=== PATIENT | female | born 1990 | race African-American/Black ===

== ENCOUNTER 2020-10-12 12:05 | Inpatient (IN) | payer SELFPAY ==
[2020-10-12] VITALS (19 sets, daily range): BP systolic 113–139; BP diastolic 65–85; PULSE 101–131; RESP 12–31; TEMP 36.8–36.9; O2SAT 98–100; BMI 20.6
--- NOTE | 2020-10-12 12:31 | NURSING ---
pt arrived via EMS into room 204 at 1200, insulin gtt running at 6 units/hr verified with EMS staff and this RN, glucose checked at 1215 resulted 410, insulin gtt remains at 6 units/hr.
--- NOTE | 2020-10-12 12:48 | HP.PCM.HOS_ITS ---
HPI - General General Date of Admission: 10/12/20 Date of Service: 10/12/20 Chief Complaint: Generalized weakness HPI Narrative RHONDA ROBERTS, is a 30 F with past medical history significant for diabetes mellitus type 1 transferred from [facility] on account of DKA. Per patient symptoms started 2 days prior to her admission. She did have a couple of drinks which was later followed by. Of generalized weakness. Patient also did complain of decreased appetite as well as some nausea. Patient felt she was dehydrated and try to keep up with her fluid intake however her condition worsened. She was finally seen at an outside hospital DKA was diagnosed and patient transferred to the ED. On further questioning patient admitted to previous admissions for DKA in [place] where she normally resides. [facility] Medical History (Updated 10/12/20 @ 12:[address] Joel Celis MD) Diabetes DKA, type 1 Home Medications insulin aspart U-100 [Novolog Flexpen U-100 Insulin] 26 unit SUBCUT BID 10/12/20 [History Last Taken Unknown] insulin glargine [Lantus Solostar U-100 Insulin] 40 unit SUBCUT QHS 10/12/20 [History Last Taken Unknown] Allergy/AdvReac Type Severity Reaction Status Date / Time sulfamethoxazole Allergy Rash Verified 10/12/20 12:48 [From Bactrim] trimethoprim [From Bactrim] Allergy Rash Verified 10/12/20 12:48 Family History Mother Borderline diabetes Grandmother Borderline diabetes Sister Borderline diabetes Aunt Breast cancer Grandmother Throat cancer Social History Smoking Status: Never smoker ROS ROS Narrative GENERAL: anorexia HEENT: denies headache, sinus congestion, RESPIRATORY: denies cough, sputum production, CARDIAC: denies chest pain, palpitations, orthopnea, GASTROINTESTINAL: denies abdominal pain, GENITOURINARY: denies dysuria, urgency, EXTREMITY: denies swelling MUSCULOSKELETAL: denies current joint pain NEUROLOGIC: denies focal numbness, HEMATOLOGIC: denies easy bruising INTEGUMENT: denies rashes PSYCHIATRIC: denies suicidal or homicidal ideation Vital Signs Vital Signs Vital Signs: 10/12/20 12:15 10/12/20 12:30 10/12/20 12:44 Temperature 98.3 F Temperature Source Temporal Pulse Rate 130 H 120 H 120 H Respiratory Rate 21 H 21 H Respiratory Effort Normal Non-Labored Respiratory Depth Normal Respiratory Pattern Tachypnea Blood Pressure 131/79 H 136/85 H Blood Pressure Mean 96 102 Blood Pressure Source Monitor Monitor Blood Pressure Position Semi-Fowlers Semi-Fowlers Blood Pressure Location Left Arm Left Arm Pulse Ox 100 100 Oxygen Delivery Method Room Air Room Air 10/12/20 12:45 Temperature Temperature Source Pulse Rate 119 H Respiratory Rate 20 H Respiratory Effort Respiratory Depth Respiratory Pattern Blood Pressure 124/85 H Blood Pressure Mean 98 Blood Pressure Source Monitor Blood Pressure Position Semi-Fowlers Blood Pressure Location Left Arm Pulse Ox 100 Oxygen Delivery Method Room Air Weight Weight: 63.367 kg Body Mass Index (BMI) 20.6 Physical Exam Narrative GENERAL: cooperative appears ill looking HEENT: Atraumatic; EYES; Anicteric, Normal Conjunctiva NECK; supple, normal thyroid, RESPIRATORY: Diminished to auscultation CARDIOVASCULAR: Regular S1 S2, tachycardic GI: soft, normoactive bowel sounds, : No Renal angle tenderness; EXTREMITIES: No edema, no clubbing, MUSCULOSKELETAL: no muscle waisting NEURO: Awake; no lateralizing signs. SKIN: No Rash PSYCH; Flat affect Assessment & Plan Assessment/Plan (1) DKA, type 1: QUALIFIERS: Diabetes mellitus complication detail: without coma Qualified Code(s): E10.10 - Type 1 diabetes mellitus with ketoacidosis without coma (2) Diabetes: QUALIFIERS: Diabetes mellitus type: type 1 Diabetes mellitus complication status: with hyperglycemia Qualified Code(s): E10.65 - Type 1 diabetes mellitus with hyperglycemia PLAN: Patient is a 30-year-old lady with history of diabetes mellitus type 1 presented with progressive generalized weakness diagnosed with DKA 1. Diabetic ketoacidosis ?Patient has been admitted to the intensive care unit currently being managed with aggressive IV fluid resuscitation, systemic use of insulin and correction of electrolyte abnormalities. Patient progress being monitored by every 4 glucose monitoring. As part of finding of the prostate symptomatology requested for urinalysis chest x-ray, SARS-CoV-2 assay as well as serial cardiac enzymes. 2. Metabolic acidosis ?Secondary to DKA management as discussed above 3. Severe dehydration ?From patient's DKA patient being managed with IV fluids with subsequent monitoring of electrolyte 4. Diabetes mellitus type 1 ?Patient presented with complications including DKA management as discussed above. Patient home regimen currently on hold. As part of her management requested for dietitian consultation 5. DVT prophylaxis ?Lovenox Charges/Coding Visit Charges Inpatient E&M: 12310 Init Hosp L3
[2020-10-12] MEDS: 0.9% Normal Saline 1,000 ML 999 ML IV (13:09)
[2020-10-12] MEDS: 0.9% Saline Lock 10 ML Syringe IV (13:34)
[2020-10-12] MEDS: Ondansetron 4 MG/2 ML Vial IV ×2 (13:34→22:42)
[2020-10-12 13:35] LABS: Base Excess -20 mmol/L (-2 to +2); Bicarbonate 7.2 mmol/L (22-26); Blood Gas Specimen Type ART; FI02 21; PO2 140 mmHG (75-100); SITE L Brach; SO2 99 % (95-99); Total Carbon Dioxide 8 mmol/L; pCO2 16.4 mmHg (35-45); pH 7.25 (7.35-7.45)
[2020-10-12 13:55] LABS: Bedside Glucose 330 mg/dL (70-110)
[2020-10-12] MEDS: Enoxaparin 40 MG/0.4 ML Syringe SC (13:55)
--- NOTE | 2020-10-12 14:20 | NURSING ---
this RN attempted and lab staff attempted to get lab draw, unsuccessful. Will get stat when PICC placed.
[2020-10-12 14:21] LABS: Bedside Glucose 276 mg/dL (70-110)
[2020-10-12] MEDS: 0.9% Normal Saline 1,000 ML 500 ML IV (15:09)
[2020-10-12 15:16] LABS: Bedside Glucose 250 mg/dL (70-110)
[2020-10-12 16:25] LABS: Absolute Lymphocyte Count 1.24 X10^3/uL (0.83-4.51); Absolute Neutrophil Count 11.4 X10^3/uL (2.0-7.7); Basophil# 0.04 X10^3/uL; Basophil% 0.3 % (0-1); Hematocrit 34.7 % (37-47); Hemoglobin 10.7 g/dL (12.0-15.0); Lymphocyte # 1.24 X10^3/ul (0.83-4.51); Lymphocyte % 9.1 % (19-41); Mean Corp Hgb Conc 30.8 g/dL (32-36); Mean Corpuscular Hgb 28.8 pg (27.0-32.0); Mean Corpuscular Volume 93.3 fL (81-99); Mean Platelet Vol. 11.4 fl (6.2-12.0); Monocyte# 0.77 X10^3/uL; Monocyte% 5.6 % (0-10); NRBC Flagged by Analyzer 0 % (0-5); Neutrophil # 11.43 X10^3/uL (2.7-7.7); Neutrophil % 83.7 % (47-70); Platelet Count 327 K/mm3 (150-450); RBC Distribution Width CV 15.2 % (11.6-14.6); RBC Distribution Width SD 52.7 fl (35.1-43.9); Red Blood Count 3.72 M/mm3 (4.2-5.4); White Blood Count 13.7 K/mm3 (4.4-11.0)
[2020-10-12 16:35] LABS: Bedside Glucose 224 mg/dL (70-110)
[2020-10-12 16:45] LABS: Hemoglobin A1c 11.1 % (3.8-5.6); Troponin-I HS 4.1 pg/mL (3.0-53.7)
[2020-10-12 16:47] LABS: Lactic Acid 0.6 mmol/L (0.4-1.9)
[2020-10-12 17:01] LABS: ALB/GLOB Ratio 0.9 RATIO (0.9-2.4); AST(SGOT) 7 U/L (15-37); Alanine Aminotransfer ALT/SGPT 15 U/L (13-56); Albumin, Serum 3.3 g/dL (3.2-5.0); Alkaline Phosphatase 79 U/L (45-117); Anion Gap 17 (5-15); BUN 11 mg/dL (7-18); BUN/Creat Ratio 11.8 RATIO (10-20); Calcium,Total 8.2 mg/dL (8.5-10.1); Chloride 120 mmol/L (98-107); Creatinine, Serum 0.93 mg/dL (0.55-1.02); EST Glomerular Filtration Rate 75 mL/min (>60); Est Glom Filt Rate - Afr Amer 91 mL/min (>60); Estimated Creatinine Clearance 88.48 ml/min; Globulin 3.7 g/dL (2.2-4.2); Glucose 232 mg/dL (74-106); Magnesium 1.8 mg/dL (1.6-2.6); Potassium 4.3 mmol/L (3.5-5.1); Sodium Level 143 mmol/L (136-145)
[2020-10-12 17:26] LABS: Bedside Glucose 190 mg/dL (70-110)
[2020-10-12] MEDS: Potassium Chloride 40 MEQ in Dext 5%-0.45% NS 1,000 ML 250 MEQ IV ×2 (17:38→22:52)
[2020-10-12 18:21] LABS: Bedside Glucose 201 mg/dL (70-110)
[2020-10-12] MEDS: proMETHazine 25 MG/ML Syringe IM (18:22)
[2020-10-12 19:00] LABS: Troponin-I HS 4.1 pg/mL (3.0-53.7)
[2020-10-12 19:36] LABS: Bedside Glucose 235 mg/dL (70-110)
[2020-10-12 20:45] LABS: Bedside Glucose 244 mg/dL (70-110)
[2020-10-12 21:13] LABS: Anion Gap 9 (5-15); BUN 8 mg/dL (7-18); BUN/Creat Ratio 8.2 RATIO (10-20); Calcium,Total 8.1 mg/dL (8.5-10.1); Chloride 120 mmol/L (98-107); Creatinine, Serum 0.98 mg/dL (0.55-1.02); EST Glomerular Filtration Rate 71 mL/min (>60); Est Glom Filt Rate - Afr Amer 86 mL/min (>60); Estimated Creatinine Clearance 83.97 ml/min; Glucose 231 mg/dL (74-106); Potassium 4.1 mmol/L (3.5-5.1); Sodium Level 142 mmol/L (136-145); Troponin-I HS 3.9 pg/mL (3.0-53.7)
[2020-10-12 21:26] LABS: Bedside Glucose 236 mg/dL (70-110)
[2020-10-12 22:40] LABS: Bedside Glucose 161 mg/dL (70-110)
[2020-10-12] MEDS: Famotidine 20 MG Tablet PO (22:42)
[2020-10-12 23:41] LABS: Bedside Glucose 163 mg/dL (70-110)
[2020-10-13] VITALS (15 sets, daily range): BP systolic 111–148; BP diastolic 66–92; PULSE 90–123; RESP 16–20; TEMP 36.6–37.3; O2SAT 96–100
[2020-10-13 00:10] LABS: Anion Gap 8 (5-15); BUN 8 mg/dL (7-18); BUN/Creat Ratio 8.7 RATIO (10-20); Calcium,Total 8.3 mg/dL (8.5-10.1); Chloride 121 mmol/L (98-107); Creatinine, Serum 0.92 mg/dL (0.55-1.02); EST Glomerular Filtration Rate 77 mL/min (>60); Est Glom Filt Rate - Afr Amer 93 mL/min (>60); Estimated Creatinine Clearance 89.44 ml/min; Glucose 151 mg/dL (74-106); Sodium Level 144 mmol/L (136-145)
--- NOTE | 2020-10-13 00:16 | PCM.HOSP.N ---
Hospitalist Note AG closed x 2, will transition to SC insulin regimen off drip with ~1 hour transition, transition to ISS w/ accu checks.
[2020-10-13] MEDS: proMETHazine 25 MG/ML Syringe IM ×2 (01:40→09:45)
[2020-10-13 05:20] LABS: Absolute Lymphocyte Count 0.86 X10^3/uL (0.83-4.51); Absolute Neutrophil Count 6.4 X10^3/uL (2.0-7.7); Basophil# 0.02 X10^3/uL; Basophil% 0.3 % (0-1); Hematocrit 32.9 % (37-47); Hemoglobin 10.6 g/dL (12.0-15.0); Lymphocyte # 0.86 X10^3/ul (0.83-4.51); Lymphocyte % 10.9 % (19-41); Mean Corp Hgb Conc 32.2 g/dL (32-36); Mean Corpuscular Hgb 29.4 pg (27.0-32.0); Mean Corpuscular Volume 91.1 fL (81-99); Mean Platelet Vol. 11.5 fl (6.2-12.0); Monocyte# 0.52 X10^3/uL; Monocyte% 6.6 % (0-10); NRBC Flagged by Analyzer 0 % (0-5); Neutrophil # 6.41 X10^3/uL (2.7-7.7); Neutrophil % 81.3 % (47-70); Platelet Count 285 K/mm3 (150-450); RBC Distribution Width CV 15.5 % (11.6-14.6); RBC Distribution Width SD 51.5 fl (35.1-43.9); Red Blood Count 3.61 M/mm3 (4.2-5.4); White Blood Count 7.9 K/mm3 (4.4-11.0)
[2020-10-13 05:58] LABS: ALB/GLOB Ratio 0.9 RATIO (0.9-2.4); AST(SGOT) 12 U/L (15-37); Alanine Aminotransfer ALT/SGPT 14 U/L (13-56); Albumin, Serum 3.2 g/dL (3.2-5.0); Alkaline Phosphatase 78 U/L (45-117); Anion Gap 9 (5-15); BUN 6 mg/dL (7-18); BUN/Creat Ratio 6.5 RATIO (10-20); Calcium,Total 8.6 mg/dL (8.5-10.1); Chloride 117 mmol/L (98-107); Creatinine, Serum 0.93 mg/dL (0.55-1.02); EST Glomerular Filtration Rate 75 mL/min (>60); Est Glom Filt Rate - Afr Amer 91 mL/min (>60); Estimated Creatinine Clearance 92.02 ml/min; Globulin 3.7 g/dL (2.2-4.2); Glucose 267 mg/dL (74-106); Potassium 4.2 mmol/L (3.5-5.1); Protein, Total 6.9 g/dL (6.4-8.2); Sodium Level 140 mmol/L (136-145)
--- NOTE | 2020-10-13 07:19 | PCM.PN.HOSP ---
Subjective Subjective Patient's anion gap did close however complains of significant nausea and vomiting and inability to hold anything down. Patient was started on Protonix for suspected gastritis Objective Data Objective Data Vital Signs: Vital Signs Temp Pulse Resp BP Pulse Ox 98.3 F 101 H 18 111/66 96 10/13/20 07:00 10/13/20 07:00 10/13/20 07:00 10/13/20 07:00 10/13/20 07:00 Oxygen Delivery Method Room Air Weight: 65.9 kg Body Mass Index (BMI) 20.6 Intake & Output: Intake and Output for Last 24 Hours 10/11/20 10/12/20 10/13/20 23:59 23:59 23:59 Intake Total 3053.41 / 3053.41 866.13 / 866.13 Output Total 1800 / 1800 900 / 900 Balance 1253.41 / 1253.41 -33.87 / -33.87 Lab / Micro Data Result Diagrams: 10/13/20 05:00 10/13/20 05:00 Labs: Laboratory Results - last 24 hr 10/12/20 13:14: COVID-19 ([facility]) Not Detected 10/12/20 13:27: POC Glucose 330 H 10/12/20 14:14: POC Glucose 276 H 10/12/20 15:11: POC Glucose 250 H 10/12/20 16:10: Hemoglobin A1c 11.1 H 10/12/20 16:10: Sodium 143, Potassium 4.3, Chloride 120 H, Carbon Dioxide 6.0 L*, Anion Gap 17 H, BUN 11, Creatinine 0.93, Estim Creat Clear Calc 88.48, Est GFR (MDRD) Af Amer 91, Est GFR (MDRD) Non-Af 75, BUN/Creatinine Ratio 11.8, Glucose 232 H, Calcium 8.2 L, Magnesium 1.8, Total Bilirubin 0.30, AST 7 L, ALT 15, Alkaline Phosphatase 79, Total Protein 7.0, Albumin 3.3, Globulin 3.7, Albumin/Globulin Ratio 0.9 10/12/20 16:10: Lactic Acid 0.6 10/12/20 16:10: WBC 13.7 H, RBC 3.72 L, Hgb 10.7 L, Hct 34.7 L, MCV 93.3, MCH 28.8, MCHC 30.8 L, RDW Std Deviation 52.7 H, RDW Coeff of Rosalina 15.2 H, Plt Count 327, MPV 11.4, Immature Gran % (Auto) 1.300 H, Neut % (Auto) 83.7 H, Lymph % (Auto) 9.1 L, Callaway % (Auto) 5.6, Eos % (Auto) 0.0, Baso % (Auto) 0.3, Absolute Neuts (auto) 11.4 H, Absolute Lymphs (auto) 1.24, Nucleated RBC % 0 10/12/20 16:10: Acetone Level SMALL H 10/12/20 16:10: Troponin I High Sens 4.1 10/12/20 16:32: POC Glucose 224 H 10/12/20 17:22: POC Glucose 190 H 10/12/20 18:16: POC Glucose 201 H 10/12/20 18:30: Troponin I High Sens 4.1 10/12/20 19:28: POC Glucose 235 H 10/12/20 20:26: POC Glucose 244 H 10/12/20 20:30: Sodium 142, Potassium 4.1, Chloride 120 H, Carbon Dioxide 13.0 L, Anion Gap 9, BUN 8, Creatinine 0.98, Estim Creat Clear Calc 83.97, Est GFR (MDRD) Af Amer 86, Est GFR (MDRD) Non-Af 71, BUN/Creatinine Ratio 8.2 L, Glucose 231 H, Calcium 8.1 L, Troponin I High Sens 3.9 10/12/20 21:18: POC Glucose 236 H 10/12/20 22:30: POC Glucose 161 H 10/12/20 23:25: POC Glucose 163 H 10/12/20 23:30: Sodium 144, Potassium 4.0, Chloride 121 H, Carbon Dioxide 15.0 L, Anion Gap 8, BUN 8, Creatinine 0.92, Estim Creat Clear Calc 89.44, Est GFR (MDRD) Af Amer 93, Est GFR (MDRD) Non-Af 77, BUN/Creatinine Ratio 8.7 L, Glucose 151 H, Calcium 8.3 L 10/13/20 05:00: WBC 7.9, RBC 3.61 L, Hgb 10.6 L, Hct 32.9 L, MCV 91.1, MCH 29.4, MCHC 32.2, RDW Std Deviation 51.5 H, RDW Coeff of Rosalina 15.5 H, Plt Count 285, MPV 11.5, Immature Gran % (Auto) 0.900, Neut % (Auto) 81.3 H, Lymph % (Auto) 10.9 L, Callaway % (Auto) 6.6, Eos % (Auto) 0.0, Baso % (Auto) 0.3, Absolute Neuts (auto) 6.4, Absolute Lymphs (auto) 0.86, Nucleated RBC % 0 10/13/20 05:00: Sodium 140, Potassium 4.2, Chloride 117 H, Carbon Dioxide 14.0 L, Anion Gap 9, BUN 6 L, Creatinine 0.93, Estim Creat Clear Calc 92.02, Est GFR (MDRD) Af Amer 91, Est GFR (MDRD) Non-Af 75, BUN/Creatinine Ratio 6.5 L, Glucose 267 H, Calcium 8.6, Total Bilirubin 0.30, AST 12 L, ALT 14, Alkaline Phosphatase 78, Total Protein 6.9, Albumin 3.2, Globulin 3.7, Albumin/Globulin Ratio 0.9 ABG Data ABG results: ABG 10/12/20 13:29 Specimen Type ART Sample Site L Brach pH 7.25 L Bicarbonate Actual 7.2 L Total CO2 8 Base Excess -20 L O2 Saturation 99 O2 % 21 ABG pCO2 16.4 L* ABG pO2 140 H Crit Call To/Read Back Yes Blood Gas Notified Whom dr. moya Physical Exam Narrative GENERAL: cooperative appears ill looking HEENT: Atraumatic; EYES; Anicteric, Normal Conjunctiva NECK; supple, normal thyroid, RESPIRATORY: Diminished to auscultation CARDIOVASCULAR: Regular S1 S2, tachycardic GI: soft, normoactive bowel sounds, : No Renal angle tenderness; EXTREMITIES: No edema, no clubbing, MUSCULOSKELETAL: no muscle waisting NEURO: Awake; no lateralizing signs. SKIN: No Rash PSYCH; Flat affect Assessment & Plan Assessment/Plan (1) DKA, type 1: QUALIFIERS: Diabetes mellitus complication detail: without coma Qualified Code(s): E10.10 - Type 1 diabetes mellitus with ketoacidosis without coma (2) Diabetes: QUALIFIERS: Diabetes mellitus complication status: with hyperglycemia Diabetes mellitus type: type 1 Qualified Code(s): E10.65 - Type 1 diabetes mellitus with hyperglycemia PLAN: Patient is a 30-year-old lady with history of diabetes mellitus type 1 presented with progressive generalized weakness diagnosed with DKA 1. Diabetic ketoacidosis ?Patient has been admitted to the intensive care unit currently being managed with aggressive IV fluid resuscitation, systemic use of insulin and correction of electrolyte abnormalities. Patient progress being monitored by every 4 glucose monitoring. As part of finding of the prostate symptomatology requested for urinalysis chest x-ray, SARS-CoV-2 assay as well as serial cardiac enzymes. -10/13/2020. Patient anion gap did close started on long-acting insulin and scheduled Premeal and correction factor sliding scale 2. Metabolic acidosis ?Secondary to DKA management as discussed above 3. Severe dehydration ?From patient's DKA patient being managed with IV fluids with subsequent monitoring of electrolyte 4. Diabetes mellitus type 1 ?Patient presented with complications including DKA management as discussed above. Patient home regimen currently on hold. As part of her management requested for dietitian consultation 5. DVT prophylaxis ?Lovenox 6. Suspected gastritis ?Patient treated symptomatically with antinausea medication. Also started on Protonix. Charges/Coding Visit Charges Inpatient E&M: 27281 Subs Hosp L3
[2020-10-13] MEDS: Ondansetron 4 MG/2 ML Vial IV ×2 (07:57→19:02)
[2020-10-13 08:00] LABS: Bedside Glucose 235 mg/dL (70-110)
[2020-10-13] MEDS: Insulin Lispro 100 UNIT/ML INSULN.PEN 26 UNIT SC ×2 (08:05→16:49)
[2020-10-13] MEDS: Enoxaparin 40 MG/0.4 ML Syringe SC (09:42)
[2020-10-13] MEDS: Pantoprazole Sodium 40 MG Tablet PO ×2 (09:43→21:30)
[2020-10-13 11:20] LABS: Bedside Glucose 85 mg/dL (70-110)
[2020-10-13] MEDS: Insulin Lispro 100 UNIT/ML INSULN.PEN SC (16:48)
[2020-10-13 18:11] LABS: Bedside Glucose 302 mg/dL (70-110)
[2020-10-13 21:41] LABS: Bedside Glucose 103 mg/dL (70-110)
[2020-10-13] MEDS: proMETHazine 25 MG Tablet 12.5 MG PO (22:16)
[2020-10-14 06:08] VITALS: BP 121/80; PULSE 94; RESP 16; TEMP 36.8; O2SAT 100
[2020-10-14 07:49] VITALS: O2SAT 99
[2020-10-14 08:53] VITALS: BP 136/89; PULSE 91; RESP 18; TEMP 36.8; O2SAT 100
[2020-10-14] MEDS: 0.9% Saline Lock 10 ML Syringe IV (09:01)
[2020-10-14] MEDS: Ondansetron 4 MG/2 ML Vial IV (09:01)
[2020-10-14] MEDS: Insulin Lispro 100 UNIT/ML INSULN.PEN SC ×2 (09:03→12:18)
[2020-10-14] MEDS: Enoxaparin 40 MG/0.4 ML Syringe SC (09:04)
[2020-10-14] MEDS: Insulin Lispro 100 UNIT/ML INSULN.PEN 26 UNIT SC (09:04)
[2020-10-14] MEDS: Pantoprazole Sodium 40 MG Tablet PO (09:05)
[2020-10-14 09:20] LABS: Bedside Glucose 403 mg/dL (70-110)
--- NOTE | 2020-10-14 10:20 | CASEMGMT ---
CESAR MAYA Assessment: Face to Face with pt for initial transition planning/care coordination assessment. CESAR MAYA introduced self and role at [facility], pt voices understanding and consents to assessment. Pt lying in bed in no distress. Pt is A/O x4 and answers all questions appropriately at this time. Care providers, pharmacy, and demographics verified/updated. Admitting Dx: DKA PCP: Pt states she does not have a PCP currently. Specialists:Pt denies having any specialists. Preferred Pharmacy: [facility] Retail Insurance: Self pay Prescription Benefit: No LW/HPOA: Pt denies having a LW/DPOA. LNOK: Kassi Ferris sister Living Arrangements: Pt is from [facility]. She states she is relocating to the [place] area. Currently she is staying with her sister in a ground level apartment with no steps to enter. Pt is I in ADL's and denies concerns at home. Transportation: Pt does not drive. She states a friend or family member transports her to medical appts and she denies concerns with transportation. DME/HHC: Pt reports she has a glucometer, testing strips and lancets at her sister's home. She has to get a battery for it but is able to do so. She states she takes insulin and has the needles for it. She denies needing any supplies. Pt denies previously HHC. Pt states no concerns with going to sister's home at time of dc. Pt states she will be pursing her own residence but she has lost her social security card and ID. CESAR MAYA provided pt with list of local PCP's as well as information for Dr. Gallegos the purchasing intern. Notified Charles HANNA of pt self pay status. Pt states no further concerns/needs. CM to follow. Advised pt to ask CM if any further question/concerns/needs arise, voices understanding. Pt Goal: Home Plan: Home with sister support.
[2020-10-14 11:21] LABS: Bedside Glucose 279 mg/dL (70-110)
--- NOTE | 2020-10-14 11:44 | CASEMGMT ---
SOCIAL WORK Referral Source: CM Reason for Consult: Self-pay Met with patient in room. Introduced role and reason for referral. Patient reports had Medicaid in [place]. Encouraged patient to contact [place] Medicaid to have it switched to [place] since patient is relocating. Patient verbalized understanding. Provided patient with contact information for [place] Benefits-Medicaid. Plan: Home, resources provided Dayanna Dalton, LEAD COOK, CARDIOVASCULAR TECH
--- NOTE | 2020-10-14 12:06 | DCINST_ITS ---
Discharge Instructions Diet Discharge Diet: Carb Control Diet Activity Discharge Activity: Return to Normal Activity Dressing / Incision Call your doctor if you observe: Fever of 101 or Higher, Shortness of breath, Dizziness, Swelling in the ankles, Chest pain and Increased palpitations (irregular heartbeat) Follow Up Care Test Results: Test results from this visit will be discussed in further detail at your follow-up appointment, if applicable. Discharge Plan Admission Admit Date/Time: 10/12/20 12:05 Attending Provider: Dwight Bravo Primary Care Provider: Care Physician,No Primary Instructions Patient Instructions: Diabetes and Drinking Alcohol, Managing Type 1 Diabetes, Insulin How to Use and Where ..., Diabetes Learn Serve Portion Size, Diabetes: Meal Planning, Diabetes Carbs Fats Protein, Diabetic Ketoacidosis, A1C Additional Instructions / Restrictions: Follow-up with your social security specialist in [place] within the next 3 to 5days for further evaluation, monitoring, and insulin adjustment. Discharge Orders/Prescriptions Prescriptions: Continued insulin aspart U-100 [Novolog Flexpen U-100 Insulin] 100 unit/mL (3 mL) Insulin Pen 26 unit SUBCUT BID RF: 0 Lantus Solostar U-100 Insulin 100 unit/mL (3 mL) Insulin Pen 40 unit SUBCUT QHS RF: 0 Referrals / Follow Up: Care Physician,No Primary [Primary Care Provider] - Disposition Disposition (needs filled in before D/C Order can be placed): Home, Self Care
--- NOTE | 2020-10-14 12:08 | PCM.DC.SUM ---
Providers Date of Admission: 10/12/20 Primary Care Physician: No Primary Care Phys Reason For Visit: DKA Diagnosis Discharge Diagnosis (1) DKA, type 1: Status: Acute Code(s): E10.10 - Type 1 diabetes mellitus with ketoacidosis without coma Qualifiers: Diabetes mellitus complication detail: without coma Qualified Code(s): E10.10 - Type 1 diabetes mellitus with ketoacidosis without coma (2) Diabetes: Status: Acute Code(s): E11.9 - Type 2 diabetes mellitus without complications Qualifiers: Diabetes mellitus complication status: with hyperglycemia Diabetes mellitus type: type 1 Qualified Code(s): E10.65 - Type 1 diabetes mellitus with hyperglycemia Medications at Discharge Home Medications Lantus Solostar U-100 Insulin 40 unit SUBCUT QHS 10/12/20 insulin aspart U-100 [Novolog Flexpen U-100 Insulin] 26 unit SUBCUT BID 10/12/20 ondansetron 4 mg PO Q8H PRN #10 tab 10/14/20 Hospital Course Operations None Procedures None Summary of Care Provided Minutes Spent on Discharge: 50 Hospital Course: Per HPI: RHONDA ROBERTS, is a 30 F with past medical history significant for diabetes mellitus type 1 transferred from [facility] on account of DKA. Per patient symptoms started 2 days prior to her admission. She did have a couple of drinks which was later followed by. Of generalized weakness. Patient also did complain of decreased appetite as well as some nausea. Patient felt she was dehydrated and try to keep up with her fluid intake however her condition worsened. She was finally seen at an outside hospital DKA was diagnosed and patient transferred to the ED. On further questioning patient admitted to previous admissions for DKA in [place] where she normally resides. Hospital course: 1. DKA/DM [age]-old female who was diagnosed with type I diabetic at 16 years old has been admitted to the hospital over 10 times with DKA in [place], which is where she normally resides. She is up here visiting family. In discussion with her as to why she is had so much DKA, she states that she does not really follow-up with her doctor and she does not pay attention to what she is eating or the insulin she takes. She states that nobody is actually talked to her about what her diet should be like an when and how to take her insulin. I spent a significant amount of time discussing with her the differences between her insulins and how to take what and when. I also discussed with her the need to monitor her food intake and that she should eat at discrete times during the day and should monitor her carbohydrate intake. I have requested that dietary meet with her as well as education by nursing on checking her blood sugar and then dosing her insulin. She is planning going back to [place] so I do recommend that she follow-up with her PCP there as well as her planning manager. In the meantime I do think that she probably lives in the 200s and her blood sugar therefore we will continue with her home blood sugar medication since she does not have a doctor here for follow-up and further monitoring. She states that she is feeling better today though she still feels a little bit nauseated will continue with dissolvable Zofran as needed on discharge. I discussed with her the plan for discharge today and she expressed understanding of the risk and benefits of going home and would like to go home today. Physical Exam Const alert, oriented x3 and no apparent distress General Appearance: cooperative HEENT normocephalic and moist oral mucous membranes Eyes PERRL, EOMs intact bilaterally and conjunctivae normal Neck supple and no JVD Resp normal respiratory effort, no retractions, no use of accessory muscles and clear to auscultation bilaterally Auscultation: Negative for crackles, rales, rhonchi or wheezes Cardio regular rate, regular rhythm, S1 normal heart sound, S2 normal heart sound and no murmurs GI soft to palpation, non-tender and non-distended; Negative for hepatosplenomegaly Extremity no clubbing, cyanosis or edema Skin no rashes or lesions noted Neuro no focal motor deficits and no sensory deficits noted Psych affect normal Appearance: appropriate Medical Records Data Medical Nutrition Assessment Dietitian: Nutrition Therapy Diagnosis Start: 10/13/20 09:58 Freq: Status: Active Protocol: Document 10/14/20 10:26 JOSHUA (Rec: 10/14/20 10:26 JOSHUA [id number]) Nutrition Malnutrition Evidence of Malnutrition Exists No Intake Problem Inadequate Oral Intake Etiology related to DKA and nausea/ vomiting Signs/Symptoms as evidenced by pt refusing food all day yesterday - starting to eat better today Status Active Problem Clinical Problem Altered Nutrient-Related Laboratory Values Etiology related to DM Signs/Symptoms as evidenced by gluc 403 this am and A1c = 11.1 Status Active Problem Recommendation Dietitian Recommendations/Changes Will continue 1800 calorie Consistent CHO diet. Will provide diet education at time of follow up as indicated. Weight / BMI Weight Weight: 145 lb 15.136 oz Body Mass Index (BMI) 20.6 ABG / Lab / Microbiology Data Result Diagrams: 10/13/20 05:00 10/13/20 05:00 Laboratory: Laboratory Results - last 24 hr 10/13/20 16:46: POC Glucose 302 H 10/13/20 21:28: POC Glucose 103 10/14/20 08:56: POC Glucose 403 H 10/14/20 11:13: POC Glucose 279 H D/C Instructions Discharge Diet: Carb Control Diet Call your doctor if you observe: Fever of 101 or Higher, Shortness of breath, Dizziness, Swelling in the ankles, Chest pain and Increased palpitations (irregular heartbeat) Meaningful Use Info Meaningful Use Diagnoses (Choose all that apply): None applicable Discharge Plan Admission Admit Date/Time: 10/12/20 12:05 Attending Provider: Dwight Bravo Primary Care Provider: Care Physician,No Primary Instructions Patient Instructions: Diabetes and Drinking Alcohol, Managing Type 1 Diabetes, Insulin How to Use and Where ..., Diabetes Learn Serve Portion Size, Diabetes: Meal Planning, Diabetes Carbs Fats Protein, Diabetic Ketoacidosis, A1C Additional Instructions / Restrictions: Follow-up with your guest experience specialist in [place] within the next 3 to 5days for further evaluation, monitoring, and insulin adjustment. Discharge Orders/Prescriptions Prescriptions: New ondansetron 4 mg tablet,disintegrating 4 mg PO Q8H PRN (Reason: nausea and vomiting) Qty: 10 RF: 0 Continued insulin aspart U-100 [Novolog Flexpen U-100 Insulin] 100 unit/mL (3 mL) Insulin Pen 26 unit SUBCUT BID RF: 0 Lantus Solostar U-100 Insulin 100 unit/mL (3 mL) Insulin Pen 40 unit SUBCUT QHS RF: 0 Referrals / Follow Up: Care Physician,No Primary [Primary Care Provider] - Disposition Disposition (needs filled in before D/C Order can be placed): Home, Self Care Charges/Coding Visit Charges Inpatient E&M: 85330 Disch Hosp
[2020-10-14 14:30] VITALS: BP 114/73; PULSE 104; RESP 18; TEMP 36.6; O2SAT 100
[2020-10-14 14:38] VITALS: BP 114/73; PULSE 104; RESP 18; TEMP 36.6; O2SAT 100
[2020-10-19 11:01] LABS: Bedside Glucose 410 mg/dL (70-110)
== END 2020-10-14 14:35 | disposition home or self-care (01) | DRG 639 ==
LOC: ICU 10-13 05:38 → MS3 10-13 16:22
PROVIDERS: Family Medicine; Internal Medicine; Admitting Provider Internal Medicine; Visit Provider Family Medicine
DX: E10.10 Type 1 diabetes mellitus with ketoacidosis without coma (principal); E86.0 Dehydration; K29.70 Gastritis, unspecified, without bleeding; Z79.4 Long term (current) use of insulin
CPT/HCPCS: 36569; 36600; 80048; 80053; 82009; 82803; 82962; 83036; 83605; 83735; 84484; 85025; 87635; 97802; 97803; 99251; J7030; U0005; A4216; G0463; J2405; J7799; U0003